=== PATIENT | male | born 1995 | race Caucasian/White ===

== ENCOUNTER 2016-06-13 14:03 | Emergency (ER) | payer BC ==
[2016-06-13 14:12] VITALS: TEMP 97.7
--- NOTE | 2016-06-13 14:12 | EDPHY ---
H & P Time Seen by Provider: 06/13/16 14:10 HPI/ROS: CHIEF COMPLAINT: Vomiting and diarrhea HISTORY OF PRESENT ILLNESS: 21-year-old college student had a hamburger last night and then for dinner had pizza. He woke up at 8:40 a.m. this morning with abdominal cramping followed by multiple episodes of vomiting and diarrhea. Symptoms are severe. Not associated with blood or melena. Worse with any oral intake and he is thirsty. REVIEW OF SYSTEMS: Eye: no change in vision ENT: no sore throat Cardiac: no chest pain or syncope Pulmonary: no cough or SOB Abdomen: HPI Musculoskeletal: no back pain Skin: no rash Neuro: no headache Constitutional: no fever : no urinary symptoms A comprehensive 10 point review of systems is otherwise negative aside from elements mentioned in the history of present illness. PAST MEDICAL HISTORY: Negative Social history: Student. Did have half of a 5th of [employer] Lisa last night. 124/74 General Appearance: Alert and conversant, cooperative. Eyes: No scleral icterus. ENT, Mouth: Dry mucous membranes. Respiratory: Normal respiratory effort, breath sounds equal, lungs are clear to auscultation. Cardiovascular: Regular rate and rhythm. Gastrointestinal: Abdomen is soft and non tender. No McBurney's point tenderness. No epigastric tenderness. Neurological: Alert and oriented x3. Normally conversant. Face symmetric, normal movement and sensation in all extremities. Skin: Warm and dry, no rashes. Musculoskeletal: No peripheral edema and no joint swelling. Psychiatric: Not agitated. Emergency Department course/MDM: Most likely viral or food related gastroenteritis. Zofran 4 mg IV and 2 L normal saline IV. Benign abdominal exam. I think appendicitis, pancreatitis, bowel obstruction, metabolic abnormality all unlikely at this time. 1455: Tolerating orals, thirsty, 124/74 blood pressure. Ambulatory, wants to go home, feels better, no N/V now. HR down to 90-100. Smoking Status: Light smoker Constitutional: Initial Vital Signs Temperature (C) 36.5 C 06/13/16 14:11 Heart Rate 118 H 06/13/16 14:11 Respiratory Rate 16 06/13/16 14:11 Blood Pressure 115/72 06/13/16 14:11 O2 Sat (%) 97 06/13/16 14:11 O2 Delivery Mode Room Air Allergies/Adverse Reactions: No Known Allergies Allergy (Unverified 04/02/15 00:27) Home Medications: Medication Instructions Recorded NK [No Known Home Meds] 04/02/15 Medical Decision Making - Data Points Medications Given: Discontinued Medications Sodium Chloride (Ns) 1,000 mls @ 0 mls/hr IV ONCE ONE PRN Reason: Wide Open Stop: 06/13/16 14:16 Last Admin: 06/13/16 14:20 Dose: 1,000 mls Sodium Chloride (Ns) 1,000 mls @ 0 mls/hr IV ONCE ONE PRN Reason: Wide Open Stop: 06/13/16 14:24 Last Admin: 06/13/16 15:00 Dose: 1,000 mls Ondansetron HCl (Zofran) 4 mg IVP EDNOW ONE Stop: 06/13/16 14:16 Last Admin: 06/13/16 14:19 Dose: 4 mg Departure - Departure Disposition: Home, Routine, Self-Care Clinical Impression: Vomiting and diarrhea, Dehydration Condition: Good Instructions: Dehydration (ED), Acute Nausea and Vomiting (ED) Referrals: Moises Haynes MD [Medical Doctor] - As per Instructions [facility] [Clinic] - As per Instructions
[2016-06-13] MEDS ORDERED: ONDANSETRON 4 MG/2 ML VIAL IVP ONE (14:15)
[2016-06-13] MEDS ORDERED: ONDANSETRON 4 MG/2 ML VIAL ONE (14:15)
[2016-06-13] MEDS ORDERED: NS 1,000 ML IV ONE ×2 (14:15→14:23)
[2016-06-13 15:35] VITALS: BP 113/84; PULSE 100; RESP 16; O2SAT 96
== END 2016-06-13 15:37 | disposition home or self-care (01) ==
DX: R11.10 Vomiting, unspecified (principal); R19.7 Diarrhea, unspecified; E86.0 Dehydration; F17.200 Nicotine dependence, unspecified, uncomplicated
CPT/HCPCS: 96374; J2405